=== PATIENT | male | born 1955 | race Caucasian/White ===

== ENCOUNTER 2025-06-10 10:52 | Outpatient (AMB) | payer MEDICARE, SELFPAY ==
--- OUTSIDE RECORDS SUMMARY | 2025-04-08 12:00 | XMS_ITS ---
Author Organization [facility] Address [address] [facility] [place] [address] Care Team Providers Care Writer Editor Name Role Phone Kendra Brown M.D Primary Care Provider Unavailable Lanie Gutierrez Unavailable [phone] Allergies Allergen (clinical drug ingredient) Drug/Non Drug Allergy documented on EMR Reaction Allergy Type Onset Date Status Penicillin hives Drug Allergy Active Medications Medication SIG (Take, Route, Frequency, Duration) Notes Start Date End Date Status Ezetimibe 10 MG 1 tablet Orally Once a day; Duration: 30 day(s) Active Lisinopril 40 MG 1 tablet Orally Once a day; Duration: 30 day(s) Active amLODIPine Besylate 10 MG 1 tablet Orall y Once a day; Duration: 30 day(s) Active Carvedilol 25 MG 1 tablet with food Orally Twice a day; Duration: 30 day(s) Active Pravastatin Sodium 80 MG 1 tablet Orally Once a day; Duration: 30 day(s) Active Trulicity 3 MG/0.5ML as directed Subcutaneous Active Potassium Chloride ER 20 MEQ 1 tablet with food Orally Twice a day Active Aspirin 81 MG 1 tablet Orally Once a day Active Spironolactone 100 MG 1 tablet Orally On ce a day Active Lantus SoloStar 100 UNIT/ML as directed Subcutaneous Active metFORMIN HCl 1000 MG 1 tablet with a me al Orally Once a day; Duration: 30 day(s) Active hydroCHLOROthiazide 25 MG 1 tablet in th e morning Orally Once a day; Duration: 30 day(s) Not-Taking Extra Depth Orthopedic Shoes (1 Pair) with Customized Heat Molded Multidensity Innersoles (3 Pair) as directed Dx: NIDDM (E11.9), Hammertoe Foot Deformity (M20.41,M20.42), Preulcerative Skin Lesion(s) (L85.1) 11/11/2020 Not-Taking oxyCODONE-Acetaminophen 5-325 MG 1 tablet as needed Orally every 6 hrs Active Ciclopirox Olamine 0.77 % 1 application Externally Twice a day to skin of feet including between the toes; Duration: 30 days Active Encounters Encounter Location Date Provider Diagnosis [facility] [address] [address] 04/08/2025 Lanie Gutierrez Plan Of Treatment Next Appt Details Provider Name:Lanie Susanaдмитрий jacobs, 09/02/2025 01:00:00 PM, [address] [place] [address], [phone], Progress Notes * Ez LYNN ADOB:0 1955 (70 yo M)Acc No.[id number]:04/08/2025 Progress Note Patient: Ez GARCÍA Provider: Sav Gutierrez DPM :1955 A ge:70 Y S ex:Male Date:04/08/2025 Address: [address] Pcp:Jass Collazo Subjective: * Chief Complaints: * * Medical History: A rthritis, Back,Hip,and Knee pain, Cholesterol, Diabetic, High blood pressure, Covid-19, Stroke, Chicken pox. * Medications: T aking Trulicity 3 MG/0.5ML [...] of feet including between the toes , Not-Taking/PRN hydroCHLOROthiazide 25 MG Tablet 1 tablet in the morning Orally Once a day , Not-Taking/PRN Extra Depth Orthopedic Shoes (1 Pair) with Customized Heat Molded Multidensity Innersoles (3 Pair) as directed Dx: NIDDM (E11.9), Hammertoe Foot Deformity (M20.41,M20.42), Preulcerative Skin Lesion(s) (L85.1) * Allergies: P enicillin: hives. Objective: * Vitals: Assessment: Plan: * Treatment: * Images: * The named appointment provid er may or may not be the originator of this progress note, and it is not deemed complete until electronically signed by the appointment provider. Sign off status: Pending * Provider: Sav Gutierrez DPM Date: 0 04/08/2025 Generated for Marely montes/Keon/Heather on: 0 06/10/2025 12:07 PM EDT
--- NOTE | 2025-06-10 10:48 | HO.NEPHOV ---
Vital Signs 06/10/25 10:53 Height 5 ft 2 in Weight 214 lb 6 oz BMI 39.2 BP 138/70 Blood Pressure Location Lt brachial Position Sitting Pulse 64 Pulse Source Pulse Oximeter Pulse Oximetry (%) 98 Oxygen Delivery Method Room Air Intake Visit Reasons: ENP: Chronic Hypokalemia and Htn-LVM Navigating Officer Required: Yes Navigating Officer Language: Molder Closed Molds Services: Navigating Officer Offered & Declined ([facility] Navigating Officer services refused ) Accompanied by: Daughter Allergies aspirin (ASPIRIN) Allergy (Unknown, Verified 06/10/25 10:52) ANGIOEDEMA diclofenac Allergy (Verified 06/10/25 10:52) Rash doxazosin Allergy (Verified 06/10/25 10:52) Unknown Penicillins Allergy (Verified 06/10/25 10:52) Rash salsalate Allergy (Verified 06/10/25 10:52) Nausea HPI Comments Details: I had the privilege of seeing Ez accompanied by her daughter in consultation today. He has H/O DM and has been on insulin for over 10 years. He has H/O hypokalemia in the past and has been on Spironolactone. He has been hypertensive as well and has been on Amlodipine, carvedilol as well as ACEI in addition to Spironolactone. He has H/O CVA without any significant deficits. He denies being on diuretics and does not have any family H/O hypokalemia. His serum creatinine has been 0.96 which recently has gone up to 1.39 and K was 5.4 at that time. He was on K supplements which has been discontinued since. He denies diarrhea, weight loss, nausea or vomiting. He denies CAD, PAD, CHF but has been having bipedal edema mostly by afternoons or evenings. He had no other specific complaint at the time of this office visit [facility] Medical History (Updated 06/10/25 @ 10:55 by Matt Freeman MD) Type 2 diabetes with nephropathy Severe obesity (BMI 35.0-39.9) with comorbidity Microalbuminuria Lumbar spinal stenosis Low serum vitamin D History of CVA (cerebrovascular accident) without residual deficits Essential (primary) hypertension Enthesopathy of ankle and tarsus, unspecified Eczema Dyslipidemia DISH (diffuse idiopathic skeletal hyperostosis) Chronic prescription opiate use Chronic hypokalemia Surgical History H/O colonoscopy H/O esophagogastroduodenoscopy Family History (Updated 06/10/25 @ 10:50 by Angeles Junior MA) Brother Diabetes mellitus Hypertension Sister Diabetes mellitus Hypertension Mother Diabetes mellitus Hypertension Social History (Updated 06/10/25 @ 10:49 by Angeles Junior MA) Alcohol intake: never Patient Tobacco Use Status: Never used Tobacco Review of Systems Const All systems reviewed & are unremarkable except as noted in HPI and below Physical Exam Const General: comfortable and no acute distress Orientation/consciousness: patient oriented x3 HEENT Head: Yes normocephalic Mouth: Normal oral and palatal mucosa present Eyes EOM: EOMs intact bilaterally Neck Neck: Yes supple Resp Auscultation: clear to auscultation bilaterally Cardio Jugular venous distension: no JVD Rate: regular rate GI Palpation (GI): Soft to palpation Auscultation: normal bowel sounds General: Yes no CVA tenderness Back/Spine/Pelvis Back: no CVA tenderness Skin General skin exam: no rashes or lesions noted Neuro General: patient oriented x3 and moves all extremities Extrem General: Yes no pedal edema Assessment & Plan Assessment & Plan (1) Hypokalemia: Code(s): E87.6 - Hypokalemia Category: Medical (2) Hypertension: Code(s): I10 - Essential (primary) hypertension Category: Medical Qualifiers: Hypertension type: primary hypertension Qualified Code(s): I10 - Essential (primary) hypertension (3) Proteinuria: Code(s): R80.9 - Proteinuria, unspecified Category: Medical Qualifiers: Proteinuria type: other Qualified Code(s): R80.8 - Other proteinuria (4) CKD stage 3a, GFR 45-59 ml/min: Code(s): N18.31 - Chronic kidney disease, stage 3a Category: Medical Plan His hypertension is likely due to vascular etiology. He has H/O CVA. I ordered renal USS along with Doppler of renal arteries. He is not on diuretics. He has some proteinuria but edema is most likely from calcium channel marky. Differential diagnosis for hypokalemia is broad and W/U has been ordered. He should stay off K replacment and should continue current dose of Spironolactone. He is not sure whether he had hypokalemia prior to initiation of insulin. All these have been explained in detail to him and daughter. Answered all questions and F/U was given Orders: Orders Renin 1 Month E87.6 - Hypokalemia, I10 - Essential (primary) hypertension, N18.31 - Chronic kidney disease, stage 3a, R80.8 - Other proteinuria Aldosterone 1 Month E87.6 - Hypokalemia, I10 - Essential (primary) hypertension, N18.31 - Chronic kidney disease, stage 3a, R80.8 - Other proteinuria Cortisol Random 1 Month E87.6 - Hypokalemia, I10 - Essential (primary) hypertension, N18.31 - Chronic kidney disease, stage 3a, R80.8 - Other proteinuria Parathyroid Hormone Intact 1 Month E87.6 - Hypokalemia, I10 - Essential (primary) hypertension, N18.31 - Chronic kidney disease, stage 3a, R80.8 - Other proteinuria Vitamin D 25-OH Total 1 Month E87.6 - Hypokalemia, I10 - Essential (primary) hypertension, N18.31 - Chronic kidney disease, stage 3a, R80.8 - Other proteinuria Phosphorus 1 Month E87.6 - Hypokalemia, I10 - Essential (primary) hypertension, N18.31 - Chronic kidney disease, stage 3a, R80.8 - Other proteinuria Calcium 1 Month E87.6 - Hypokalemia, I10 - Essential (primary) hypertension, N18.31 - Chronic kidney disease, stage 3a, R80.8 - Other proteinuria US renal BI 3 Weeks E87.6 - Hypokalemia, I10 - Essential (primary) hypertension, N18.31 - Chronic kidney disease, stage 3a, R80.8 - Other proteinuria US renal doppler 3 Weeks E87.6 - Hypokalemia, I10 - Essential (primary) hypertension, N18.31 - Chronic kidney disease, stage 3a, R80.8 - Other proteinuria Immunofixation Pnl, Serum 3 Weeks E87.6 - Hypokalemia, I10 - Essential (primary) hypertension, N18.31 - Chronic kidney disease, stage 3a, R80.8 - Other proteinuria Aldost/Renin 1 Month E87.6 - Hypokalemia, I10 - Essential (primary) hypertension, N18.31 - Chronic kidney disease, stage 3a, R80.8 - Other proteinuria Electrolytes 1 Month E87.6 - Hypokalemia, I10 - Essential (primary) hypertension, N18.31 - Chronic kidney disease, stage 3a, R80.8 - Other proteinuria Blood Urea Nitrogen 1 Month E87.6 - Hypokalemia, I10 - Essential (primary) hypertension, N18.31 - Chronic kidney disease, stage 3a, R80.8 - Other proteinuria Creatinine 1 Month E87.6 - Hypokalemia, I10 - Essential (primary) hypertension, N18.31 - Chronic kidney disease, stage 3a, R80.8 - Other proteinuria Coding Level of Care Code New Pt Level 4 (72619) Diagnoses Hypokalemia E87.6 Primary hypertension I10 Hypertension type: primary hypertension Other proteinuria R80.8 Proteinuria type: other CKD stage 3a, GFR 45-59 ml/min N18.31
[2025-06-10 10:53] VITALS: BP 138/70; PULSE 64; O2SAT 98; BMI 39.2
== END 2025-06-10 11:15 | disposition home or self-care (01) ==
LOC: HO.HKA 10:53
PROVIDERS: PCP Internal Medicine; Visit Provider Internal Medicine Nephrology
DX: E87.6 Hypokalemia (principal); I10 Essential (primary) hypertension; R80.8 Other proteinuria; N18.31 Chronic kidney disease, stage 3a
CPT/HCPCS: 99204

== ENCOUNTER → 2025-06-10 10:52 | Outpatient (BNVA) | payer MEDICARE, SELFPAY | PROVIDERS: PCP Internal Medicine; Visit Provider Internal Medicine Nephrology | DX: I10 Essential (primary) hypertension (principal); E87.6 Hypokalemia; R80.8 Other proteinuria; N18.31 Chronic kidney disease, stage 3a | CPT/HCPCS: 99202 ==

== ENCOUNTER 2025-07-17 08:02 | Outpatient (REF) | payer MEDICARE, SELFPAY ==
--- OUTSIDE RECORDS SUMMARY | 2025-02-25 09:30 | XMS_ITS ---
Author Organization [facility] Address [address] [facility] [place] [address] Care Team Providers Care Oracle Programmer Analyst Name Role Phone Kendra Brown M.D Primary Care Provider Unavailable Lanie Gutierrez Unavailable [phone] Medications Medication SIG (Take, Route, Frequency, Duration) Notes Start Date End Date Status Ezetimibe 10 MG 1 tablet Orally Once a day; Duration: 30 day(s) Active Lisinopril 40 MG 1 tablet Orally Once a day; Duration: 30 day(s) Active Spironolactone 100 MG 1 tablet Orally On ce a day Active Pravastatin Sodium 80 MG 1 tablet Orally Once a day; Duration: 30 day(s) Active Aspirin 81 MG 1 tablet Orally Once a day Active Trulicity 3 MG/0.5ML as directed Subcutaneous Active Lantus SoloStar 100 UNIT/ML as directed Subcutaneous Active Potassium Chloride ER 20 MEQ 1 tablet wi th food Orally Twice a day Active Extra Depth Orthopedic Shoes (1 Pair) with Customized Heat Molded Multidensity Innersoles (3 Pair) as directed Dx: NIDDM (E11.9), Hammertoe Foot Deformity (M20.41,M20.42), Preulcerative Skin Lesion(s) (L85.1) 11/11/2020 Unknown Ciclopirox Olamine 0.77 % 1 application Externally Twice a day to skin of feet including between the toes; Duration: 30 days Active metFORMIN HCl 1000 MG 1 tablet with a me al Orally Once a day; Duration: 30 day(s) Active oxyCODONE-Acetaminophen 5-32 5 MG 1 tablet as needed Orally every 6 hrs Active amLODIPine Besylate 10 MG 1 tablet Orall y Once a day; Duration: 30 day(s) Active Carvedilol 25 MG 1 tablet with food Orally Twice a day; Duration: 30 day(s) Active hydroCHLOROthiazide 25 MG 1 tablet in morning Orally Once a day; Duration: 30 day(s) Unknown Encounters Encounter Location Date Provider Diagnosis [facility] [address] [address] 02/25/2025 Lanie Gutierrez Plan Of Treatment Next Appt Details Provider Name:Lanie Vazquez reynaldo, 09/02/2025 01:00:00 PM, [address] [place] [address], [phone], Progress Notes * Ez LYNN ADOB:0 1955 (70 yo M)Acc No.[id number]:02/25/2025 Progress Note Patient: Jenny BOTELLOLAXMI Vinicio Provider: Sav Gutierrez DPM :1955 A ge:70 Y S ex:Male Date:02/25/2025 Address: [address] Pcp:Jass Collazo Subjective: * Chief Complaints: * * Medical History: * Medications: T aking Trulicity 3 MG/0.5ML Solution Auto-injector as directed Subcutaneous , Taking Lantus SoloStar 100 UNIT/ML Solution Pen-injector as directed Subcutaneous , Taking Potassium Chloride ER 20 MEQ Tablet Extended Release 1 tablet with food Orally Twice a day , Taking Aspirin 81 MG Tablet Chewable 1 tablet Orally Once a day , Taking Spironolactone 100 MG Tablet 1 tablet Orally Once a day , Taking Pravastatin Sodium 80 MG Tablet 1 tablet Orally Once a day , Taking Ezetimibe 10 MG Tablet 1 tablet Orally Once a day , Taking Lisinopril 40 MG Tablet 1 tablet Orally Once a day , Taking amLODIPine Besylate 10 MG Tablet 1 tablet Orally Once a day , Taking Carvedilol 25 MG Tablet 1 tablet with food Orally Twice a day , Taking metFORMIN HCl 1000 MG Tablet 1 tablet with a meal Orally Once a day , Taking oxyCODONE-Acetaminophen 5-325 MG Tablet 1 tablet as needed Orally every 6 hrs , Taking Ciclopirox Olamine 0.77 % Cream 1 application Externally Twice a day to skin of feet including between the toes , Unknown hydroCHLOROthiazide 25 MG Tablet 1 tablet in the morning Orally Once a day , Unknown Extra Depth Orthopedic Shoes (1 Pair) with Customized Heat Molded Multidensity Innersoles (3 Pair) as directed Dx: NIDDM (E11.9), Hammertoe Foot Deformity (M20.41,M20.42), Preulcerative Skin Lesion(s) (L85.1) Objective: * Vitals: Assessment: Plan: * Treatment: * Images: * The named appointment provid er may or may not be the originator of this progress note, and it is not deemed complete until electronically signed by the appointment provider. Sign off status: Pending * Provider: Sav Gutierrez DPM Date: 0 02/25/2025 Generated for Marely montes/Keon/Heather on: 1 08:13 AM EDT
--- OUTSIDE RECORDS SUMMARY | 2025-04-08 12:00 | XMS_ITS ---
Author Organization [facility] Address [address] [facility] [place] [address] Care Team Providers Care Camp Manager Name Role Phone Kendra Brown M.D Primary Care Provider Unavailable Lanie Gutierrez Unavailable [phone] Allergies Allergen (clinical drug ingredient) Drug/Non Drug [...] Active Encounters Encounter Location Date Provider Diagnosis [facility] [address] [address] 04/08/2025 Lanie Gutierrez Plan Of Treatment Next Appt Details Provider Name:Lanie Susanaдмитрий jacobs, 09/02/2025 01:00:00 PM, [address] [place] [address], [phone], Progress Notes * Ez LYNN ADOB:0 1955 (70 yo M)Acc No.[id number]:04/08/2025 Progress Note Patient: Ez GARCÍA Provider: Sav Gutierrez DPM :1955 A ge:70 Y S ex:Male Date:04/08/2025 [facility] [address] Pcp:Jass Collazo Subjective: * Chief Complaints: * [...] 0 04/08/2025 Generated for Marely montes/Keon/Heather on: 1 08:13 AM EDT
--- OUTSIDE RECORDS SUMMARY | 2025-07-17 08:14 | XMS_ITS | Patient Health Record ---
Author [facility] Address [address] [facility] [place] [address] Care Team Providers Care Overlock Collar Setter Name Role Phone Kendra Brown M.D Primary Care Provider Unavailable Lanie Gutierrez Unavailable [phone] Alecia Garcia Unavailable [phone] Allergies Allergen (clinical drug ingredient) Drug/Non Drug Allergy documented on EMR Reaction Allergy Type Onset Date Status Penicillin hives Drug Allergy Active Results Component Value Reference Range Notes HEMOGLOBIN A1C (GLYCOHEMOGLO BIN) Reviewed date:11/07/2024 08:26:10 AM Interpretation: Performing Lab: Notes/Report: HEMOGLOBIN A1C % (HH) 6.5 Reason For Referral No Information Medications Medication SIG (Take, Route, Frequency, Duration) Notes Start Date End Date Status Lantus SoloStar 100 UNIT/ML as directed Subcutaneous Active Ciclopirox Olamine 0.77 % 1 application Externally Twice a day to skin of feet including between the toes; Duration: 30 days Active Potassium Chloride ER 20 MEQ 1 tablet with food Orally Twice a day Active hydroCHLOROthiazide 25 MG 1 tablet in e morning Orally Once a day; Duration: 30 day(s) Not-Taking metFORMIN HCl 1000 MG 1 tablet with a me al Orally Once a day; Duration: 30 day(s) Active Trulicity 3 MG/0.5ML as directed Subcutaneous Active oxyCODONE-Acetaminophen 5-325 MG 1 tablet as needed Orally every 6 hrs Active amLODIPine Besylate 10 MG 1 tablet Orall y Once a day; Duration: 30 day(s) Active Carvedilol 25 MG 1 tablet with food Orally Twice a day; Duration: 30 day(s) Active Ezetimibe 10 MG 1 tablet Orally Once a day; Duration: 30 day(s) Active Lisinopril 40 MG 1 tablet Orally Once a day; Duration: 30 day(s) Active Spironolactone 100 MG 1 tablet Orally On ce a day Active Pravastatin Sodium 80 MG 1 tablet Orally Once a day; Duration: 30 day(s) Active Aspirin 81 MG 1 tablet Orally Once a day Active Extra Depth Orthopedic Shoes (1 Pair) with Customized Heat Molded Multidensity Innersoles (3 Pair) as directed Dx: NIDDM (E11.9), Hammertoe Foot Deformity (M20.41,M20.42), Preulcerative Skin Lesion(s) (L85.1) 11/11/2020 Not-Taking Extra Depth Orthopedic Shoes (1 Pair) with Customized Heat Molded Multidensity Innersoles (3 Pair) Dx: NIDDM/Polyneuropathy (E11.42), Hammertoe Foot Deformity (M20.41,M20.42), Preulcerative Skin Lesion(s) (L85.1); Duration: 365 days 06/03/2025 Active Immunizations Vaccine Route Administration Date Status Comme nts Influenza Unknown 07/17/2020 Administered Influenza Unknown 07/18/2024 Administered Social History Tobacco Use: Social History Observation Description Date Details (start date - stop date) Never Smoker NA - NA Tobacco use other than smoking: Question Answer Notes Are you an other tobacco user? No Tobacco Control (Standard) Question Answer Notes Tobacco use: Nonsmoker Additional Findings: Tobacco non-user Current no nsmoker AUDIT-C (Standard) Question Answer Notes Did you have a drink containing alcohol in the p ast year? No Points 0 Interpretation Negative Problems Problem Type SNOMED Code ICD Code Onset Dates Problem Status W/U Status Risk Notes Problem Acquired hammer toe of right foot (408770369891999 5) Other hammer toe(s) (acquired), right foot (M20.41) Active confirmed Problem Acquired hammer toe of left foot (288417191788897 3) Other hammer toe(s) (acquired), left foot (M20.42) Active confirmed Problem Type II diabetes mellitus without complication (381354907) Type 2 diabetes mellitus without complication (E11.9) Active confirmed Problem Type I diabetes mellitus without complication (227135590) Type 1 diabetes mellitus without complication (E10.9) Active confirmed Vital Signs Blood pressure diastolic 65 mm Hg 06/03/2025 Height 5ft 5inch in 06/03/2025 Blood pressure systolic 128 mm Hg 06/03/2025 Weight 214 lbs 06/03/2025 BMI 35.61 kg/m2 06/03/2025 Procedures Procedure Date Ordered Date Performed Result Body Sit e 62587-RSQJXFG NAIL, 6 OR MORE 11/07/2024 N/A 32510-[id number] NAIL, 6 OR MORE 06/03/2025 N/A Encounters Encounter Location Date Provider Diagnosis [address] [address] 11/07/2024 Lanie Gutierrez Pain in right toe(s) M79.674 ; Tinea unguium B35.1 ; Pain in left toe(s) M79.675 ; Type 2 diabetes mellitus without complication E11.9 and Tinea pedis of both feet B35.[address] [address] 06/03/2025 Lanie Gutierrez Other hammer toe(s) (acquired), right foot M20.41 ; Other hammer toe(s) (acquired), left foot M20.42 ; Pain in right toe(s) M79.674 ; Tinea unguium B35.1 ; Pain in left toe(s) M79.675 ; Type 2 diabetes mellitus without complication E11.9 and Type 1 diabetes mellitus without complication E10.[address] [address] 09/06/2024 Alecia Garcia [address] [address] 02/25/2025 Lanie Gutierrez [address] [address] 04/05/2025 Lanie Gutierrez [address] [address] 04/24/2025 Lanie Gutierrez Assessments Encounter Date Diagnosis (ICD Code) Assessment Notes Treatment Notes Treatment Clinical Notes Section Notes 11/07/2024 Pain in right toe(s) (ICD-10 - M79.674) 06/03/2025 Other hammer toe(s) (acquired), right foot (ICD-10 - M20.41) Patient Educated with: DIABETIC FOOT CARE INSTRUCTIONS.p df (DIABETIC FOOT CARE INSTRUCTIONS.p df) 06/03/2025 Other hammer toe(s) (acquired), left foot (ICD-10 - M20.42) 11/07/2024 Tinea unguium (ICD-10 - B35.1) 11/07/2024 Pain in left toe(s) (ICD-10 - M79.675) 11/07/2024 Type 2 diabetes mellitus without complication (ICD-10 - E11.9) 06/03/2025 Pain in right toe(s) (ICD-10 - M79.674) 06/03/2025 Tinea unguium (ICD-10 - B35.1) 11/07/2024 Tinea pedis of both feet (ICD-10 - B35.3) 06/03/2025 Pain in left toe(s) (ICD-10 - M79.675) 06/03/2025 Type 2 diabetes mellitus without complication (ICD-10 - E11.9) 06/03/2025 Type 1 diabetes mellitus without complication (ICD-10 - E10.9) Plan Of Treatment Pending Test Test Name Order Date [id number] NAIL, 6 OR MORE 11/07/2024 [id number] NAIL, 6 OR MORE 06/03/2025 Next Appt Details Provider Name:Lanie Vazquez reynaldo, 09/02/2025 01:00:00 PM, [address] [facility], [place], [address], Insurance Providers Payer Name Payer Address Payer Phone Subscriber Number Group Number Insured Name Patient Relationship to Insured Coverage Start Date Coverage End Date [employer] [place] [employer]age [facility] [address] [place] [address] [id number] Ez Pathak Self - patient is the insured 3 Medical (General) History Medical History History ICD Code Arthritis Back,Hip,and Knee pain Cholesterol Diabetic High blood pressure covid-19 Stroke Chicken pox Surgical History Surgery Date(Month/Year)
[2025-07-17 09:06] LABS: Parathyroid Hormone Intact 39.8 pg/mL (8.7-77.1)
[2025-07-17 09:07] LABS: Anion Gap 12 (12-20); Blood Urea Nitrogen 18 mg/dL (9-16); Calcium 10.1 mg/dL (8.4-10.2); Carbon Dioxide 27 mmol/L (22-29); Chloride 105 mmol/L (96-108); Estimated Glomerular Filt Rate > 60; Potassium 4.4 mmol/L (3.3-5.1); Sodium 140 mmol/L (135-145)
[2025-07-29 12:58] LABS: Plasma Renin Activity 0.89 ng/mL/h (0.25-5.82)
== END 2025-07-17 08:03 | disposition home or self-care (01) ==
LOC: HO.LAB 08:02
PROVIDERS: PCP Internal Medicine; Visit Provider Internal Medicine Nephrology
DX: I12.9 Hypertensive chronic kidney disease with stage 1 through stage 4 chronic kidney disease, or unspecified chronic kidney disease (principal); N18.31 Chronic kidney disease, stage 3a; E87.6 Hypokalemia; R80.8 Other proteinuria
CPT/HCPCS: 36415; 80051; 82088; 82306; 82310; 82533; 82565; 82784; 83970; 84100; 84520; 86334